=== PATIENT | male | born 1945 | race African-American/Black ===

== ENCOUNTER 2018-06-10 07:33 | Emergency (ER) | payer MEDICARE ==
[~2018-06-10] VITALS: Ht 182.9 cm; Wt 94.3 kg
[2018-06-10 07:43] VITALS: Ht 182.9 cm; Wt 94.3 kg
[2018-06-10 11:02] VITALS: BP 164/91
== END 2018-06-10 11:21 | disposition home or self-care (01) ==
LOC: ED 07:33
DX: Z04.3 Encounter for examination and observation following other accident (principal); I10 Essential (primary) hypertension
CPT/HCPCS: 82962